=== PATIENT | female | born 1985 | race Caucasian/White ===

== ENCOUNTER 2018-02-05 18:01 | Emergency (ER) | payer OTHER ==
[~2018-02-05] VITALS: Ht 157.5 cm; Wt 65.8 kg
--- NOTE | 2018-02-05 18:10 | ED GI/GU/ABDOMINAL COMPLAINT ---
History of Present Illness General Chief Complaint: General Adult Stated Complaint: REQUESTING TEST Source: patient Exam Limitations: no limitations, unable to give history Vital Signs & Intake/Output Vital Signs & Intake/Output Vital Signs Date Time Temp Pulse Resp B/P B/P Pulse O2 O2 Flow FiO2 Mean Ox Delivery Rate 02/05 1814 96.9 94 18 119/61 98 Room Air Room Air Allergies Coded Allergies: No Known Allergies (02/05/18) Reconcile Medications Nitrofurantoin Monohyd/M-Cryst (Macrobid 100 MG Capsule) 100 MG CAPSULE 1 CAP PO BID UTI with food Triage Nurses Notes Reviewed? yes ? N Is pt currently ? No Onset: Abrupt Duration: day(s): Timing: recent history HPI: 32-year-old female comes into the emergency room requesting a test. She reports that she had some spotting 2 weeks ago which was not a normal menstrual period for her. She has some increased frequency with urination. She was diagnosed with a UTI 2 weeks ago but did not fill the prescription. She is asking if she can be brought to the same room that her fianc was brought in by ambulance. Currently he is receiving no visitors and she was told that she cannot see him currently. She denies any fever chills vomiting. She reports some intermittent cramps at times but denies any pain currently. (Epi Rivas) Past History Travel History Traveled to [place] past 21 day No Medical History Any Pertinent Medical History? none Surgical History Surgical History: non-contributory Psychosocial History What is your primary language Bulgarian ETOH Use: denies use Family History Hx Contributory? No (Epi Rivas) Review of Systems Review of Systems Constitutional: Reports: no symptoms. EENTM: Reports: no symptoms. Respiratory: Reports: no symptoms. Cardiovascular: Reports: no symptoms. GI: Reports: no symptoms. Genitourinary: Reports: see HPI. Musculoskeletal: Reports: no symptoms. Skin: Reports: no symptoms. Neurological/Psychological: Reports: no symptoms. Hematologic/Endocrine: Reports: see HPI. Immunologic/Allergic: Reports: no symptoms. All Other Systems: Reviewed and Negative (Epi Rivas) Physical Exam Physical Exam General Appearance: well developed/nourished, alert, awake Head: atraumatic Eyes: Bilateral: normal appearance. Ears, Nose, Throat, Mouth: hearing grossly normal, moist mucous membrane Neck: normal inspection Respiratory: no respiratory distress Gastrointestinal: soft Back: normal inspection Extremities: normal range of motion Neurologic/Psych: awake, alert, oriented x 3 Skin: intact, normal color Core Measures ACS in differential dx? No Sepsis Present: No Sepsis Focused Exam Completed? No (Epi Rivas) Progress Differential Diagnosis: intrauterine , kidney stone, ovarian cyst, UTI/ pyelo Plan of Care: Orders Procedure Date/time Status URINE 02/05 1805 Complete URINALYSIS 02/05 1805 Complete Laboratory Tests 02/05/181808: Urine Color YEL, Urine Clarity CLEAR, Urine pH 6.0, Ur Specific [place] >= 1.030 , Urine Protein NEG, Urine Ketones NEG, Urine Nitrite NEG, Urine Bilirubin NEG, Urine Urobilinogen 0.2, Ur Leukocyte Esterase NEG, Ur Microscopic EXAM NOT REQUIRED, Urine Hemoglobin NEG, Urine Glucose NEG, Urine Test NEGATIVE Initial ED EKG: none Comments: 02/05/2018 9:28:32 PM Patient is no apparent distress. Nontoxic-appearing. She is not . No current signs of UTI except the fact that she is symptomatic in requesting an antibiotic. She is afebrile. Patient Trying to leave the room to try to find her fianc in the emergency room. It is unclear but the patient seemed to have intention of trying to get back in the department to find her fianc. 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 Return if any other concerns. (Epi Rivas) Departure Departure Disposition: HOME OR SELF CARE Condition: Stable Clinical Impression Primary Impression: test negative Additional Instructions: Follow-up with your EVENTS AND PROMOTIONS ASSISTANT doctor. Return if any concerns worsening symptoms. Please go over all results of today's visit with your primary care doctor. Contact your primary care doctor to let them know you were here in the emergency room. There may be nonspecific findings which may not be related to your visit today here in the emergency room but may require further evaluation and chronic monitoring by your primary care doctor. If you had a laceration today the chance of foreign body always remains. You should follow-up with your primary care doctor for recheck in 3-5 days for a wound check. If you had an x-ray done there is a chance that a fracture could have been missed on initial read and you should follow-up with your primary care doctor for repeat x-rays if symptoms persist. If your blood pressure was elevated here in the emergency room please have rechecked by destiney primary care doctor within the next 48. If you were prescribed a narcotic here in the emergency room or any type of controlled substances you're not allowed to drive while taking this medication or operate any type of heavy machinery. Narcotics can make you feel lightheaded dizziness nausea and can cause constipation. You may need to picker packer a stool softener. Thank you for choosing [facility] emergency room. Please return to the emergency room immediately if you have any other concerns worsening of symptoms. Departure Forms: Customer Survey General Discharge Information Prescriptions: Current Visit Scripts Nitrofurantoin Monohyd/M-Cryst (Macrobid 100 MG Capsule) 1 CAP PO BID #14 CAP with food (Epi Rivas) PA/DIRECTOR OF CORPORATE COMMUNICATIONS Co-Sign Statement Statement: ED Attending supervision documentation- I saw and evaluated the patient. I have also reviewed all the pertinent lab results and diagnostic results. I agree with the findings and the plan of care as documented in the PA's/DIRECTOR OF CORPORATE COMMUNICATIONS's documentation. x I have reviewed the ED Record and agree with the PA's/DIRECTOR OF CORPORATE COMMUNICATIONS's documentation. [] Additions or exceptions (if any) to the PAs/DIRECTOR OF CORPORATE COMMUNICATIONS's note and plan are summarized below: [] (Vipul DOTY,Victor Hugo)
[2018-02-05 18:14] VITALS: BP 119/61
[2018-02-05] MEDS ORDERED: MACROBID 100 M100 MG PO (19:24)
== END 2018-02-05 19:11 ==
LOC: ERH 18:01
DX: R35.0 Frequency of micturition (principal)
CPT/HCPCS: 81003; 81025